=== PATIENT | female | born 1965 | race Caucasian/White ===

== ENCOUNTER 2021-02-09 19:18 | Inpatient (IN) | payer BC, SELFPAY ==
[~2021-02-09] VITALS: Ht 157.5 cm; Wt 67.1 kg
[2021-02-09] VITALS: BP_SYST 138
[2021-02-09 19:25] VITALS: BP_SYST 108
[2021-02-09 19:57] LABS: BASOPHILS # (AUTO) 0.1 K/uL (0.0-0.2); BASOPHILS % (AUTO) 0.4 % (0.0-2.0); EOSINOPHILS # (AUTO) 0.1 K/uL (0.0-0.4); EOSINOPHILS % (AUTO) 0.7 % (0.0-4.0); HEMATOCRIT 38.3 % (36-48); LYMPHOCYTES # (AUTO) 2.1 K/uL (1.0-5.5); LYMPHOCYTES % (AUTO) 14.4 % (20.5-51.5); MEAN CORPUSCULAR HEMOGLOBIN 33 pg (27-31); MEAN CORPUSCULAR HGB CONC 34 % (32-36); MEAN CORPUSCULAR VOLUME 97 fL (79.0-98.0); MONOCYTES # (AUTO) 0.8 K/uL (0.0-1.0); MONOCYTES % (AUTO) 5.7 % (1.7-9.3); NEUTROPHILS # (AUTO) 11.7 K/uL (1.8-7.7); NEUTROPHILS % (AUTO) 78.8 % (40.0-70.0); PLATELET COUNT (AUTO) 303 K/uL (130-430); RED BLOOD CELL COUNT(AUTO) 3.95 MIL/uL (4.2-6.2); RED CELL DISTRIBUTION WIDTH 12.2 % (9.0-15.0); WHITE BLOOD COUNT (AUTO) 14.9 K/uL (4.8-10.8)
[2021-02-09 20:17] LABS: CALCIUM 9.5 mg/dL (8.4-11.0); CREATININE 0.8 mg/dL (0.55-1.30)
[2021-02-09 20:21] LABS: POTASSIUM 2.8 mmol/L (3.5-5.1)
[2021-02-09 20:26] LABS: ALBUMIN 3.5 g/dL (3.4-4.8); TOTAL BILIRUBIN 0.6 mg/dL (0.0-1.0)
[2021-02-09] MEDS ORDERED: KETOROLAC TROMETHAMINE 30 MG VIAL IVP ONE (20:30)
[2021-02-09] MEDS ORDERED: metroNIDAZOLE 500 mg/NS 100 ML IV ONE (20:45)
[2021-02-09] MEDS ORDERED: CIPROFLOXACIN LACT 400 MG/D5W 200 ML IV ONE (20:45)
[2021-02-09] MEDS ORDERED: ACETAMINOPHEN 650 MG/20.3 ML UDC PO PRN (21:15)
[2021-02-09] MEDS ORDERED: LR 1,000 ML IV ONE (21:15)
[2021-02-09] MEDS ORDERED: KCL 20 mEq in 100 mL (PREMIX) 100 ML IV ONE (21:15)
[2021-02-09] MEDS ORDERED: NACL 0.9% 1,000 ML IV ONE (21:15)
[2021-02-09 22:25] VITALS: BP_SYST 131
[2021-02-09 22:43] VITALS: BP_SYST 131
[2021-02-09] MEDS: KETOROLAC TROMETHAMINE 15 MG VIAL IVP PRN (23:26)
[2021-02-10] VITALS: BP_SYST 138
[2021-02-10 03:44] LABS: CLARITY/URINE SLIGHTLY HAZY (CLEAR); COLOR,URINE YELLOW (YELLOW)
[2021-02-10 03:45] LABS: PH,URINE 5.5 (5.0-8.0); PROTEIN URINE 2+ (NEGATIVE)
[2021-02-10 03:46] LABS: BILIRUBIN,URINE 2+ (NEGATIVE); BLOOD, URINE NEGATIVE (NEGATIVE); GLUCOSE,URINE NEGATIVE (NEGATIVE); KETONES,URINE 1+ (NEGATIVE)
[2021-02-10 03:49] LABS: LEUKOCYTE ESTERASE ,URINE NEGATIVE (NEGATIVE)
[2021-02-10 03:50] LABS: NITRITE, URINE POSITIVE (NEGATIVE)
[2021-02-10 04:02] LABS: BACTERIA,URINE FEW /HPF (None Seen); RBC,URINE NONE SEEN /HPF (0-3); WBC,URINE 0-3 /HPF (0-3)
[2021-02-10 08:00] VITALS: BP_SYST 115
[2021-02-10 09:08] LABS: PROTHROMBIN TIME 10.2 SECS (9.5-12.5)
[2021-02-10] MEDS ORDERED: metroNIDAZOLE 500 mg/NS 100 ML IV ONE (09:30)
[2021-02-10 11:24] VITALS: BP_SYST 120
[2021-02-10] MEDS: metroNIDAZOLE 500 mg/NS 100 ML IV SCH ×2 (13:22→22:50)
[2021-02-10] MEDS ORDERED: CIPROFLOXACIN LACT 400 MG/D5W 200 ML IV ONE (14:00)
[2021-02-10] MEDS: KETOROLAC TROMETHAMINE 15 MG VIAL IVP PRN (15:15)
[2021-02-10 15:39] VITALS: BP_SYST 119
[2021-02-10] MEDS ORDERED: ONDANSETRON HCL 4 MG/2 ML VIAL IVP PRN (19:00)
[2021-02-10] MEDS ORDERED: LR 1,000 ML IV SCH (19:00)
[2021-02-10] MEDS ORDERED: KETOROLAC TROMETHAMINE 30 MG VIAL IVP PRN (19:00)
[2021-02-10] MEDS ORDERED: SUCCINYLCHOLINE CHLORIDE 20 MG/ML(QUELICIN) ONE (20:05)
[2021-02-10] MEDS ORDERED: LR 1,000 ML IV.SOLN IV ONE (20:05)
[2021-02-10] MEDS ORDERED: GLYCOPYRROLATE 0.2 MG/ML VIAL ONE (20:05)
[2021-02-10] MEDS ORDERED: NS IRRIG SOLN 1000 ML IR ONE (20:05)
[2021-02-10] MEDS ORDERED: ONDANSETRON HCL 4 MG/2 ML VIAL ONE (20:05)
[2021-02-10] MEDS ORDERED: METOCLOPRAMIDE HCL 10 MG/2 ML VIAL ONE (20:05)
[2021-02-10] MEDS ORDERED: PHENYLEPHRINE HCL 10 MG/ML VIAL (NEOSYNEPHRINE) ONE (20:05)
[2021-02-10] MEDS ORDERED: PROPOFOL 200MG/ 20ML VIAL (DIPRIVAN) IV ONE (20:05)
[2021-02-10] MEDS ORDERED: SEVOFLURANE 15 MIN GAS INH ONE (20:05)
[2021-02-10] MEDS ORDERED: fentaNYL CITRATE/PF 100 MCG/2 ML AMP ONE (20:05)
[2021-02-10] MEDS ORDERED: BUPIVACAINE /EPINEPHRINE/PF 0.5% 30 ML VIAL INJ ONE (20:05)
[2021-02-10] MEDS ORDERED: WATER FOR IRRIGATION,STERILE 1,000 ML IRRIG.SOLN IR ONE (20:05)
[2021-02-10] MEDS ORDERED: ROCURONIUM BROMIDE 10 MG/ML (ZEMURON) ONE (20:05)
[2021-02-10 21:00] VITALS: BP_SYST 94
[2021-02-10] MEDS: CIPROFLOXACIN LACT 400 MG/D5W 200 ML IV SCH (21:46)
[2021-02-10 23:00] VITALS: BP_SYST 119
[2021-02-11] VITALS: BP_SYST 93
[2021-02-11] MEDS: KETOROLAC TROMETHAMINE 15 MG VIAL IVP PRN ×3 (02:47→22:49)
[2021-02-11] MEDS: metroNIDAZOLE 500 mg/NS 100 ML IV SCH ×3 (05:12→22:49)
[2021-02-11 06:48] LABS: BASOPHILS % (AUTO) 0.4 % (0.0-2.0); EOSINOPHILS # (AUTO) 0.3 K/uL (0.0-0.4); EOSINOPHILS % (AUTO) 2.5 % (0.0-4.0); HEMATOCRIT 31.6 % (36-48); HEMOGLOBIN 10.7 g/dL (12.0-16.0); LYMPHOCYTES % (AUTO) 9.9 % (20.5-51.5); MEAN CORPUSCULAR HEMOGLOBIN 33 pg (27-31); MEAN CORPUSCULAR HGB CONC 34 % (32-36); MEAN CORPUSCULAR VOLUME 98 fL (79.0-98.0); MONOCYTES # (AUTO) 0.6 K/uL (0.0-1.0); MONOCYTES % (AUTO) 5.4 % (1.7-9.3); NEUTROPHILS # (AUTO) 8.6 K/uL (1.8-7.7); NEUTROPHILS % (AUTO) 81.8 % (40.0-70.0); PLATELET COUNT (AUTO) 260 K/uL (130-430); RED BLOOD CELL COUNT(AUTO) 3.23 MIL/uL (4.2-6.2); RED CELL DISTRIBUTION WIDTH 12.2 % (9.0-15.0); WHITE BLOOD COUNT (AUTO) 10.5 K/uL (4.8-10.8)
[2021-02-11 08:00] VITALS: BP_SYST 86
[2021-02-11 08:34] LABS: CALCIUM 8.3 mg/dL (8.4-11.0); CREATININE 1.26 mg/dL (0.55-1.30)
[2021-02-11] MEDS: CIPROFLOXACIN LACT 400 MG/D5W 200 ML IV SCH ×2 (09:10→20:38)
[2021-02-11 11:25] VITALS: BP_SYST 91
[2021-02-11 15:58] VITALS: BP_SYST 98
[2021-02-11 20:00] VITALS: BP_SYST 97
[2021-02-11] MEDS: POTASSIUM CHLORIDE 20 MEQ TAB.PRT.SR PO SCH (20:38)
[2021-02-12] VITALS: BP_SYST 93
[2021-02-12] MEDS: metroNIDAZOLE 500 mg/NS 100 ML IV SCH ×2 (05:05→13:52)
[2021-02-12 08:00] VITALS: BP_SYST 98
[2021-02-12 08:33] LABS: CALCIUM 8.7 mg/dL (8.4-11.0); CREATININE 1.92 mg/dL (0.55-1.30); POTASSIUM 3.5 mmol/L (3.5-5.1)
[2021-02-12] MEDS: POTASSIUM CHLORIDE 20 MEQ TAB.PRT.SR PO SCH (09:28)
[2021-02-12] MEDS: CIPROFLOXACIN LACT 400 MG/D5W 200 ML IV SCH (09:29)
[2021-02-12 12:00] VITALS: BP_SYST 100
[2021-02-12] MEDS ORDERED: METR500T PO (13:40)
[2021-02-12] MEDS ORDERED: HYDR-3917 PO (13:40)
[2021-02-12] MEDS ORDERED: LACTOBACILLUS RHAMNOSUS GG 1 CAP CAPSULE PO ONE (13:45)
[2021-02-12] MEDS: KETOROLAC TROMETHAMINE 15 MG VIAL IVP PRN (14:46)
[2021-02-12 15:56] VITALS: BP_SYST 117
[2021-02-12] MEDS ORDERED: CIPR500T5 PO (16:25)
[2021-02-13] MEDS ORDERED: LACTOBACILLUS RHAMNOSUS GG 1 CAP CAPSULE PO SCH (09:00)
== END 2021-02-12 17:20 | disposition home or self-care (01) | DRG 343 ==
LOC: SED 19:18 → SMU 21:03
PROVIDERS: ADMIT Surgery; ATTEND Surgery
PROC: 0DTJ4ZZ Resection of Appendix, Percutaneous Endoscopic Approach (ICD-10-PCS; principal; 2021-02-10 18:32)
DX: K35.20 Acute appendicitis with generalized peritonitis, without abscess (principal); K56.41 Fecal impaction; Z20.822 Contact with and (suspected) exposure to COVID-19; E87.6 Hypokalemia; Z88.5 Allergy status to narcotic agent; Z88.8 Allergy status to other drugs, medicaments and biological substances; Z88.6 Allergy status to analgesic agent; Z91.040 Latex allergy status
CPT/HCPCS: 36415; 71045; 76376; 80048; 80053; 81000; 83690; 84132; 85025; 85610-TC; 85730-TC; 86886; 86900; 86901; 87081; 88304; 93005; 94010; 96365; 96366; 96367; 96368; 99285; C1727; J0330; J0744; J1885; J2370; J2405; J2704; J2765; J3010; J3480; J3490; J7120

== ENCOUNTER 2021-08-31 13:29 | Emergency (ER) | payer SELFPAY ==
[~2021-08-31] VITALS: Ht 157.5 cm; Wt 61.2 kg
[~2021-08-31 13:29] MED LIST: CIPR500T5 PO; HYDR-3917 PO; METR500T PO
[2021-08-31 14:04] VITALS: BP_SYST 159
--- NOTE | 2021-08-31 14:45 | NUR ---
Made call out in ER waiting room but no response, patient not in lobby or waiting room area. LWBS by physician.
--- NOTE | 2021-08-31 15:53 | NUR ---
Pt LWBS-not noted to be in waiting room
== END 2021-08-31 15:53 | disposition left against medical advice (07) ==
LOC: SED 13:29
DX: K08.89 Other specified disorders of teeth and supporting structures (principal); Z53.21 Procedure and treatment not carried out due to patient leaving prior to being seen by health care provider

== ENCOUNTER 2023-08-26 01:22 | Emergency (ER) | payer OTHER ==
[~2023-08-26] VITALS: Ht 160 cm; Wt 61.2 kg
[2023-08-26 01:49] VITALS: BP_SYST 157; PULSE 68; RESP 16; TEMP 96.3; O2SAT 98
[2023-08-26 02:50] LABS: BASOPHILS # (AUTO) 0.2 K/uL (0.0-0.2); BASOPHILS % (AUTO) 1.9 % (0.0-2.0); EOSINOPHILS # (AUTO) 0.2 K/uL (0.0-0.4); EOSINOPHILS % (AUTO) 1.6 % (0.0-4.0); LYMPHOCYTES # (AUTO) 2.3 K/uL (1.0-5.5); LYMPHOCYTES % (AUTO) 21.8 % (20.5-51.5); MEAN CORPUSCULAR HEMOGLOBIN 34 pg (27-31); MEAN CORPUSCULAR HGB CONC 34 % (32-36); MEAN CORPUSCULAR VOLUME 98 fL (79.0-98.0); MONOCYTES # (AUTO) 0.7 K/uL (0.0-1.0); MONOCYTES % (AUTO) 7.1 % (1.7-9.3); NEUTROPHILS # (AUTO) 7.1 K/uL (1.8-7.7); NEUTROPHILS % (AUTO) 67.6 % (40.0-70.0); PLATELET COUNT (AUTO) 267 K/uL (130-430); RED BLOOD CELL COUNT(AUTO) 3.86 MIL/uL (4.2-6.2); RED CELL DISTRIBUTION WIDTH 12.4 % (9.0-15.0); WHITE BLOOD COUNT (AUTO) 10.5 K/uL (4.8-10.8)
[2023-08-26 03:16] LABS: BILIRUBIN,DIRECT 0.1 mg/dL (0.0-0.3); CALCIUM 9.2 mg/dL (8.4-11.0); CREATININE 0.81 mg/dL (0.55-1.30); POTASSIUM 4.3 mmol/L (3.5-5.1); TOTAL BILIRUBIN 0.3 mg/dL (0.0-1.0); TOTAL PROTEIN, SERUM 8.4 g/dL (6.4-8.3)
[2023-08-26] MEDS: ONDANSETRON 4 MG ODT TAB PO ONE (03:19)
[2023-08-26] MEDS: KETOROLAC TROMETHAMINE 30 MG VIAL IM ONE (03:19)
[2023-08-26] MEDS: ACETAMINOPHEN 500 MG TABLET PO ONE (03:20)
[2023-08-26 03:35] LABS: BILIRUBIN,URINE NEGATIVE (NEGATIVE); BLOOD, URINE 2+ (NEGATIVE); COLOR,URINE YELLOW (YELLOW); KETONES,URINE NEGATIVE (NEGATIVE); LEUKOCYTE ESTERASE ,URINE NEGATIVE (NEGATIVE); NITRITE, URINE NEGATIVE (NEGATIVE); PH,URINE 6.5 (5.0-8.0); PROTEIN URINE 1+ (NEGATIVE); UROBILINOGEN,URINE 0.2 (0.2-1.0)
[2023-08-26 03:38] LABS: CLARITY/URINE HAZY (CLEAR)
[2023-08-26 03:39] LABS: BACTERIA,URINE None Seen /HPF (None Seen); WBC,URINE 0-3 /HPF (0-3)
[2023-08-26 03:40] LABS: GLUCOSE,URINE TRACE (NEGATIVE)
[2023-08-26] MEDS ORDERED: CIPR250T4 PO (04:49)
[2023-08-26] MEDS: FLUCONAZOLE 200 MG TABLET (DIFLUCAN) PO ONE (04:57)
[2023-08-26] MEDS: CIPROFLOXACIN HCL 500 MG TABLET PO ONE (05:15)
[2023-08-26] MEDS ORDERED: TAMS-11 PO (05:30)
[2023-08-26] MEDS ORDERED: ONDA-8 TL (05:31)
[2023-08-26 05:40] VITALS: BP_SYST 157; PULSE 68; RESP 16; TEMP 96.3; O2SAT 98
== END 2023-08-26 05:39 | disposition home or self-care (01) ==
LOC: SED 01:22
DX: N20.1 Calculus of ureter (principal); B37.31 Acute candidiasis of vulva and vagina; R10.2 Pelvic and perineal pain; R10.30 Lower abdominal pain, unspecified; R11.2 Nausea with vomiting, unspecified; Z88.1 Allergy status to other antibiotic agents; Z88.5 Allergy status to narcotic agent; Z88.6 Allergy status to analgesic agent; Z91.040 Latex allergy status; Z88.8 Allergy status to other drugs, medicaments and biological substances; Z79.899 Other long term (current) drug therapy
CPT/HCPCS: 99285; 74176; 80076; 80048; 81000; 81001; 83690; 85025; 36415; 96372; 81015; Q0162; J1885